=== PATIENT | male | born 1975 | race Hispanic/Latino ===

== ENCOUNTER 2016-12-27 10:12 | Observation (INO) | payer SELFPAY ==
[2016-12-27 10:22] VITALS: BMI 29.0
[2016-12-27] MEDS ORDERED: Iohexol 300 100 ML IJ ONE (10:52)
[2016-12-27] MEDS ORDERED: Sodium Chloride 0.9% 100 ML ONE (10:52)
[2016-12-27 11:13] LABS: BASO % 1.1 % (0.0-2.0); EOS # 0.2 K/uL (0.0-0.7); EOS % 3.7 % (0.0-4.0); HEMATOCRIT 34.1 % (35.0-51.0); LYMPH # 1.2 K/uL (1.0-4.3); LYMPH % 25.7 % (20.0-40.0); MEAN CELL VOLUME 89.5 fl (80.0-94.0); MEAN CORPUSCULAR HEMOGLOBIN 30.4 pg (27.0-31.0); MEAN PLATELET VOLUME 7.3 fl (7.2-11.7); MONO # 0.6 K/uL (0.0-0.8); MONO % 12.2 % (0.0-10.0); NEUT # 2.6 K/uL (1.8-7.0); NEUT % 57.3 % (50.0-75.0); RED CELL DISTRIBUTION WIDTH 14.1 % (11.5-14.5); WHITE BLOOD COUNT 4.5 K/uL (4.8-10.8)
[2016-12-27 11:25] LABS: ALCOHOL SERUM < 10 mg/dl (0-10); BLOOD UREA NITROGEN 22 mg/dl (9-20); CARBON DIOXIDE 25 mmol/L (22-30); CHLORIDE 106 mmol/L (98-107); GFR AFRICAN-AMERICAN > 60; GLUCOSE,RANDOM 104 mg/dL (75-110); POTASSIUM 3.7 MMOL/L (3.6-5.0); SODIUM 138 mmol/l (132-148)
[2016-12-27] MEDS ORDERED: Sodium Chloride 0.9% 1,000 ML IV STA (11:35)
[2016-12-27 11:36] LABS: PARTIAL THROMBOPLASTIN TIME 27.7 Seconds (25.6-37.1)
--- NOTE | 2016-12-27 12:22 | RAD ---
PROCEDURE: Right Knee Radiographs. HISTORY: knee pain injury COMPARISON: None. FINDINGS: BONES: Normal. No fracture. JOINTS: Joint space is relatively preserved. No significant osteoarthritis. 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 JOINT EFFUSION: Tiny suprapatellar joint effusion felt to be present. OTHER FINDINGS: None. IMPRESSION: No evidence of acute displaced fracture nor dislocation. Tiny suprapatellar joint effusion.
--- NOTE | 2016-12-27 12:27 | CT ---
PROCEDURE: CT HEAD WITHOUT CONTRAST. HISTORY: head injury syncope COMPARISON: None available. TECHNIQUE: Axial computed tomography images were obtained through the head/brain without intravenous contrast. Radiation dose: Total exam DLP = 1030.37 mGy-cm. This CT exam was performed using one or more of the following dose reduction techniques: Automated exposure control, adjustment of the mA and/or kV according to patient size, and/or use of iterative reconstruction technique. FINDINGS: HEMORRHAGE: No acute parenchymal, subarachnoid or extra-axial hemorrhage. BRAIN: No evidence of large acute infarct. No obvious parenchymal nor extra-axial masses or collections. Questionable minimal chronic periventricular white matter ischemic changes. Mild generalized volume loss. VENTRICLES: No obstructive hydrocephalus CALVARIUM: No acute calvarial fracture seen. There appears to be some mild left frontotemporal and parietal scalp swelling. PARANASAL SINUSES: Unremarkable as visualized. No significant inflammatory changes. MASTOID AIR CELLS: Unremarkable as visualized. No inflammatory changes. OTHER FINDINGS: None. IMPRESSION: No acute intracranial hemorrhage. On mild left frontotemporal and parietal scalp swelling. Questionable minimal chronic periventricular white matter ischemic changes. Mild generalized volume loss.
--- NOTE | 2016-12-27 12:34 | CT ---
PROCEDURE: CT scan lumbar spine 12/27/2016 HISTORY: Status post fall fall with back pain COMPARISON: No prior TECHNIQUE: Contiguous helical/ transaxial computed tomography images were obtained of the lumbar spine without the use of intravenous contrast. Coronal and sagittal reformatted images were created and reviewed. Radiation dose: Total exam DLP = 1569.66 mGy-cm. This CT exam was performed using one or more of the following dose reduction techniques: Automated exposure control, adjustment of the mA and/or kV according to patient size, and/or use of iterative reconstruction technique. . FINDINGS: VERTEBRAE: The current study reveals no evidence of acute compression fractures no retropulsed fragments. Vertebral bodies exhibit normal stature. Vertebral bodies and facets normally aligned. DISCS/SPINAL CANAL/NEURAL FORAMINA: L1 at the L5-S1 level, there is mild posterior disc space narrowing. . Small central and bilateral (right slightly large than left) reaches and minimally posteriorly displaces the ventral surfaces of the descending S1 nerve roots. No evidence of significant canal stenosis. Facets are slightly overgrown. The exit foramina are narrowed bilaterally. At the L4-L5 level, there is also mild posterior disc space narrowing. Central and bilateral (left larger than right) disc herniation results in bilateral lateral recess stenosis left greater than right and compression of the ventral surfaces of thecal sac more so on the left than right. Central canal measured at midline does appear adequate. Facets are mildly hypertrophic of. Exit foramina appear adequate. At the L3-L4 level, there is minimal posterior disc space narrowing. Small broad-based bulge of the posterior annulus asymmetrically larger on the left than right with some extension into the proximal margin of the left exit foramen more so than right. There is some flattening of the ventral surface of the thecal sac centrally and to the left however the overall central canal is adequate. Facets are slightly overgrown. Exit foramina are adequate. Remaining levels exhibit relatively adequate disc height and. No disc herniation or significant disc bulges seen at the remaining levels. PARASPINAL SOFT TISSUES: Unremarkable. OTHER FINDINGS: Small approximately 3 mm rounded nonobstructing calculus seen in the upper pole left kidney IMPRESSION: No acute fractures. Mild degenerative spondylosis most notably affecting L5-S1 and L4-L5 levels where small disc bulge and disc herniation changes are seen respectively. See above discussion for additional details and findings. Nonobstructing 3 mm calculus upper pole left kidney.
--- NOTE | 2016-12-27 12:41 | CT ---
PROCEDURE: CT Cervical Spine without contrast HISTORY: <neck pain> COMPARISON: None available. TECHNIQUE: Axial computed tomography images were obtained of the cervical spine without the use of intravenous contrast. Coronal and sagittal reformatted images were created and reviewed. Radiation dose: Total exam DLP = 680.35 mGy-cm. This CT exam was performed using one or more of the following dose reduction techniques: Automated exposure control, adjustment of the mA and/or kV according to patient size, and/or use of iterative reconstruction technique. FINDINGS: VERTEBRAE: Current study reveals no acute compression fractures no retropulsed fragments. Vertebral bodies exhibit normal stature. There is straightening of the normal cervical lordosis which could be due to patient positioning gantry however underlying element of mild muscle spasm may contribute. DISCS/SPINAL CANAL/NEURAL FORAMINA: At the C2-C3 level, there is adequate disc height. Small central and bilateral disc bulge minimally indents the ventral surface of thecal sac reaching but not significantly compressing the ventral surface of the cord. The overall central canal is adequate exit foramina appear adequate. At the C3-C4 level, there is disc space narrowing with cortical endplate irregularity and small osteophytic ridge disc complex contiguous with hypertrophic uncovertebral joints. Facets also slightly overgrown. Changes result in mild central canal narrowing and flattening the ventral surface of the cord. Left exit foramen is stenotic. Right exit foramen is mildly narrowed. At the C 4 C5 level, there is adequate disc height. No disc herniation however some minimal broad-based disc bulge ridge complex noted. The uncovertebral joints exhibit minimal degenerative squaring on the left side. Facets a prominent. The central canal appears adequate. Exit foramina are marginal to adequate. At the C5-C6 level, there is mild disc space narrowing with cortical endplate irregularity along the posterior endplates with small osteophytic ridge disc herniation complex (larger on the left than right) and contiguous with hypertrophic uncovertebral joints left more prominent than the right. Changes result in mild canal narrowing and cord compression more so on the left. Facets also mildly hypertrophic. Changes result in mild central canal narrowing more so on the left larger on the left and right PARASPINAL SOFT TISSUES: Unremarkable. OTHER FINDINGS: Lung apices are clear. IMPRESSION: No acute fractures. Mild multilevel degenerative spondylosis most notably affecting the C3-C4 and C5-C6 levels as detailed above. Unremarkable CT of the cervical spine.
--- NOTE | 2016-12-27 12:56 | ED PDOC ---
HPI: General Adult Time Seen by Provider: 12/27/16 10:41 Chief Complaint (Nursing): Chest Pain Chief Complaint (Provider): Chest Pain History Per: Patient History/Exam Limitations: no limitations Onset/Duration Of Symptoms: Hrs Current Symptoms Are (Timing): Still Present Additional Complaint(s): 41 y/o male presents to the emergency department with a complaint of syncopal episode and fall after working on his brothers house on an 18 feet high ladder prior to arrival. Reports he felt a chest pain that radiated to the left arm and shoulder with numbness to the arm before syncope. States he then woke up on the ground with a lower back pain that radiates to the right knee. Patient says he experienced chest pain yesterday and today before fall but had resolved since. Denies taking medications for the relief of pain, headache or chest pain. Past Medical History Reviewed: Historical Data, Nursing Documentation, Vital Signs Vital Signs: Last Vital Signs Temp 97.6 F 12/28/16 09:00 Pulse 62 12/28/16 09:00 Resp 18 12/28/16 09:00 BP 100/62 12/28/16 09:00 Pulse Ox 98 12/28/16 09:00 - Medical History PMH: No Chronic Diseases - Surgical History Surgical History: No Surg Hx - Family History Family History: States: No Known Family Hx - Social History Current smoker - smoking cessation education provided: Yes (Light Smoker < 10 Cigarettes Daily) Alcohol: None Drugs: Denies - Home Medications Home Medications: Ambulatory Orders Medication Instructions Recorded No Known Home Med 12/27/16 - Allergies Allergies/Adverse Reactions: Allergies Allergy/AdvReac Type Severity Reaction Status Date / Time No Known Allergies Allergy Verified 12/27/16 10:33 Review of Systems ROS Statement: Except As Marked, All Systems Reviewed And Found Negative Cardiovascular: Negative for: Chest Pain (Had CP yesterday and today before syncope but had resolved since) Musculoskeletal: Positive for: Back Pain (Lower back), Other (Right knee) Neurological: Positive for: Other (Syncope and fall). Negative for: Headache Physical Exam - Reviewed Nursing Documentation Reviewed: Yes Vital Signs Reviewed: Yes - Physical Exam Appears: Positive for: Well (Uncomfortable), Non-toxic, No Acute Distress Head Exam: Positive for: ATRAUMATIC, NORMAL INSPECTION, NORMOCEPHALIC Skin: Positive for: Normal Color, Warm, Dry Eye Exam: Positive for: Normal appearance, EOMI, PERRL Neck: Positive for: Normal, Supple Cardiovascular/Chest: Positive for: Regular Rate, Rhythm. Negative for: Chest Non Tender, Murmur Respiratory: Positive for: Normal Breath Sounds (Clear b/l). Negative for: Accessory Muscle Use, Wheezing, Respiratory Distress Gastrointestinal/Abdominal: Positive for: Normal Exam, Soft. Negative for: Tenderness, Distended Back: Positive for: Normal Inspection (Normal midline spine region), Other ( Tenderness to the right lower back and right flank region). Negative for: L CVA Tenderness, R CVA Tenderness (No ecchymosis or deformity noted to the back) Extremity: Positive for: Normal ROM (FULL). Negative for: Tenderness, Swelling Neurologic/Psych: Positive for: Alert, Oriented (x3) - Laboratory Results Result Diagrams: 12/28/16 06:00 12/28/16 06:00 - ECG ECG: Positive for: Interpreted By Me, Viewed By Me ECG Rhythm: Positive for: Normal QRS, Normal ST Segment, Sinus Rhythm. Negative for: ST/T Changes Rate: 79 O2 Sat by Pulse Oximetry: 98 (RA) Pulse Ox Interpretation: Normal - Radiology X-Ray: Interpreted by Me, Viewed By Ar X-Ray Interpretation: No Acute Disease Medical Decision Making Medical Decision Making: Time: 10:42 Initial impression: Syncope r/o cardiac conditions such as ACS and cardiac arrhythmia. Multiple blunt injuries r/o intracranial bleed, intraabdominal bleed , spine fracture, pelvic fracture, and knee fracture. Initial plan: --Type and Screen --Alcohol Serum --BMP --Drug Screen, Urine --Troponin I --EKG --CBC w/ diff --Cervical Spine CT --Chest, Abd, Pel w/ IV Contrast CT --Head CT --Lumbar Spine w/o contrast CT --Reevaluation Time: 12:20 --Knee x-ray FINDINGS: BONES: Normal. No fracture. JOINTS: Joint space is relatively preserved. No significant osteoarthritis. 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 JOINT EFFUSION: Tiny suprapatellar joint effusion felt to be present. OTHER FINDINGS: None. IMPRESSION: No evidence of acute displaced fracture nor dislocation. Tiny suprapatellar joint effusion. Time: 12:25 --Head CT FINDINGS: HEMORRHAGE: No acute parenchymal, subarachnoid or extra-axial hemorrhage. BRAIN: No evidence of large acute infarct. No obvious parenchymal nor extra-axial masses or collections. Questionable minimal chronic periventricular white matter ischemic changes. Mild generalized volume loss. VENTRICLES: No obstructive hydrocephalus CALVARIUM: No acute calvarial fracture seen. There appears to be some mild left frontotemporal and parietal scalp swelling. PARANASAL SINUSES: Unremarkable as visualized. No significant inflammatory changes. MASTOID AIR CELLS: Unremarkable as visualized. No inflammatory changes. OTHER FINDINGS: None. IMPRESSION: No acute intracranial hemorrhage. On mild left frontotemporal and parietal scalp swelling. Questionable minimal chronic periventricular white matter ischemic changes. Mild generalized volume loss. Time: 12:31 --Lumbar Spine CT FINDINGS: VERTEBRAE: The current study reveals no evidence of acute compression fractures no retropulsed fragments. Vertebral bodies exhibit normal stature. Vertebral bodies and facets normally aligned. DISCS/SPINAL CANAL/NEURAL FORAMINA: L1 at the L5-S1 level, there is mild posterior disc space narrowing. . Small central and bilateral (right slightly large than left) reaches and minimally posteriorly displaces the ventral surfaces of the descending S1 nerve roots. No evidence of significant canal stenosis. Facets are slightly overgrown. The exit foramina are narrowed bilaterally. At the L4-L5 level, there is also mild posterior disc space narrowing. Central and bilateral (left larger than right) disc herniation results in bilateral lateral recess stenosis left greater than right and compression of the ventral surfaces of thecal sac more so on the left than right. Central canal measured at midline does appear adequate. Facets are mildly hypertrophic of. Exit foramina appear adequate. At the L3-L4 level, there is minimal posterior disc space narrowing. Small broad-based bulge of the posterior annulus asymmetrically larger on the left than right with some extension into the proximal margin of the left exit foramen more so than right. There is some flattening of the ventral surface of the thecal sac centrally and to the left however the overall central canal is adequate. Facets are slightly overgrown. Exit foramina are adequate. Remaining levels exhibit relatively adequate disc height and. No disc herniation or significant disc bulges seen at the remaining levels. PARASPINAL SOFT TISSUES: Unremarkable. OTHER FINDINGS: Small approximately 3 mm rounded nonobstructing calculus seen in the upper pole left kidney IMPRESSION: No acute fractures. Mild degenerative spondylosis most notably affecting L5-S1 and L4-L5 levels where small disc bulge and disc herniation changes are seen respectively. See above discussion for additional details and findings. Nonobstructing 3 mm calculus upper pole left kidney. Time: 12:39 --Cervical Spine CT FINDINGS: VERTEBRAE: Current study reveals no acute compression fractures no retropulsed fragments. Vertebral bodies exhibit normal stature. There is straightening of the normal cervical lordosis which could be due to patient positioning gantry however underlying element of mild muscle spasm may contribute. DISCS/SPINAL CANAL/NEURAL FORAMINA: At the C2-C3 level, there is adequate disc height. Small central and bilateral disc bulge minimally indents the ventral surface of thecal sac reaching but not significantly compressing the ventral surface of the cord. The overall central canal is adequate exit foramina appear adequate. At the C3-C4 level, there is disc space narrowing with cortical endplate irregularity and small osteophytic ridge disc complex contiguous with hypertrophic uncovertebral joints. Facets also slightly overgrown. Changes result in mild central canal narrowing and flattening the ventral surface of the cord. Left exit foramen is stenotic. Right exit foramen is mildly narrowed. At the C 4 C5 level, there is adequate disc height. No disc herniation however some minimal broad-based disc bulge ridge complex noted. The uncovertebral joints exhibit minimal degenerative squaring on the left side. Facets a prominent. The central canal appears adequate. Exit foramina are marginal to adequate. At the C5-C6 level, there is mild disc space narrowing with cortical endplate irregularity along the posterior endplates with small osteophytic ridge disc herniation complex (larger on the left than right) and contiguous with hypertrophic uncovertebral joints left more prominent than the right. Changes result in mild canal narrowing and cord compression more so on the left. Facets also mildly hypertrophic. Changes result in mild central canal narrowing more so on the left larger on the left and right PARASPINAL SOFT TISSUES: Unremarkable. OTHER FINDINGS: Lung apices are clear. IMPRESSION: No acute fractures. Mild multilevel degenerative spondylosis most notably affecting the C3-C4 and C5-C6 levels as detailed above. Unremarkable CT of the cervical spine. Time: 13:27 --Pelvic X-ray FINDINGS: BONES: Pelvic Bones: Unremarkable. Hips: Grossly unremarkable. JOINTS: Sacroiliac Joints: Unremarkable. Pubic Symphysis: Unremarkable. OTHER FINDINGS: None. IMPRESSION: Unremarkable radiographs of the pelvis. Time: 13:26 --Chest, Abd, Pelvis CT FINDINGS: CT CHEST WITH CONTRAST: LUNGS: Minimal passive atelectasis both posterior lower lung zones. Lung lockwood are otherwise clear without infiltrate of nodule or mass. MEDIASTINUM: Heart size is borderline/mildly enlarged. No significant pericardial effusion. Ascending thoracic aorta measures approximately 3.3 cm and descending thoracic aorta measures approximately 2.5 cm. No evidence of aortic dissection or aneurysm. Pulmonary trunk measures approximately 2.73 cm. . LYMPH NODES: No significant mediastinal or hilar adenopathy. There is a tiny hiatal hernia. Central airways are midline and patent. No endobronchial lesions are identified. . All 1st PLEURA: No evidence of pneumothorax or pleural sleep effusion. Exit BONES: There are old healed rib fractures involving the left posterior 4, 5, 6, 7th, mic8 and 9th ribs. . Vertebral bodies are intact. OTHER FINDINGS: None CT ABDOMEN AND PELVIS: LIVER: The liver exhibits normal size measuring approximately 17 cm in CC dimension. Mild diffuse fatty hepatic infiltration. No obvious hepatic mass collection or calcification. Portal and splenic veins are patent. No evidence of parenchymal nor subcapsular hemorrhage. . GALLBLADDER AND BILE DUCTS: Gallbladder is incompletely distended which may account for slight thick-walled appearance. There appears to be a tiny calcification within the gallbladder lumen in the region of fundus. No pericholecystic fluid collections. PANCREAS: Unremarkable. No gross lesion or ductal dilatation. SPLEEN: Spleen measures approximately 12.3 cm in AP dimension. Spleen appears intact without evidence of laceration, up parenchymal nor subcapsular hemorrhage. . No evidence of splenic mass collection or calcification. ADRENALS: Unremarkable. No mass. KIDNEYS AND URETERS: Kidneys demonstrate symmetric nephrograms. . 3 mm nonobstructing calculus again seen upper pole left kidney No evidence of hydronephrosis. No evidence of renal infarct, laceration parenchymal nor subcapsular hemorrhage. . VASCULATURE: No evidence of abdominal aortic aneurysm or iliac artery aneurysm. BOWEL: Evaluation of the bowel is somewhat limited due to the lack of oral contrast material. The stomach is incompletely distended which presumably accounts for slight thick-walled appearance. Gastritis not excluded. There are several loops of small bowel left mid upper abdomen that exhibit slight thick-walled appearance nonspecific. No evidence of obstruction. Stool and air seen throughout the colon. APPENDIX: Normal-appearing appendix best seen on coronal image number [id number]. PERITONEUM: Unremarkable. No free fluid. No free air. LYMPH NODES: There are multiple bilateral inguinal lymph nodes present. Few small external iliac chain lymph nodes are also noted. BLADDER: The urinary bladder is incompletely distended which may account for slight thick -walled appearance. Muscular hypertrophy may contribute. REPRODUCTIVE: Unremarkable. BONES: The osseous structures appear grossly intact. Both femoral heads are appropriately located within the respective acetabula. OTHER FINDINGS: None. IMPRESSION: Multiple old healed left posterior rib fractures as above. No evidence of intrathoracic acute posttraumatic sequela. No evidence of intra abdominal acute posttraumatic sequela Note made of minimal wall thickening of several loops of small bowel left upper abdomen nonspecific. The gallbladder is incompletely distended/contracted likely due to nonfasting state. Contraction presumably accounts for slight thick-walled appearance. There is a small intraluminal gallbladder calculus however. Clinical correlation recommended. Followup nonemergent gallbladder ultrasound recommended. See above discussion for additional details and findings. Time: 13:28 --Chest x-ray FINDINGS: LUNGS: Clear. PLEURA: No pneumothorax or pleural fluid seen. CARDIOVASCULAR: Normal. OSSEOUS STRUCTURES: Multiple old healed left-sided rib fractures including 4th, 5th, 6th, 7th 8th and 9th ribs. These fractures are seen to much better advantage on prior CT scan chest abdomen pelvis. VISUALIZED UPPER ABDOMEN: Normal. OTHER FINDINGS: None. IMPRESSION: Multiple old healed left-sided posterior rib fracture deformities. 14:01 --Admit to hospital routine: Observation in Telemetry for syncope, chest pain, and lower back pain under the care of Dr. Segundo Rico MD Scribe Attestation: Documented by Pauline Weathers, acting as a scribe for Taylor Waterman MD. Provider Scribe Attestation: All medical record entries made by the Scribe were at my direction and personally dictated by me. I have reviewed the chart and agree that the record accurately reflects my personal performance of the history, physical exam, medical decision making, and the department course for this patient. I have also personally directed, reviewed, and agree with the discharge instructions and disposition. Disposition - Clinical Impression Clinical Impression: Syncope, Back pain, Chest pain - Patient ED Disposition Is Patient to be Admitted: Yes (On observaiton in Telemetry) Discussed With : Segundo Rico Counseled Patient/Family Regarding: Studies Performed, Diagnosis - Disposition Disposition Time: 14:01 Condition: FAIR - Pt Status Changed To: Hospital Disposition Of: Observation - POA Present On Arrival: Falls Or Trauma
--- NOTE | 2016-12-27 13:28 | CT ---
PROCEDURE: CT chest abdomen pelvis dated 12/27/2016 HISTORY: Status post fall with chest and back pain. COMPARISON: Correlation made with concurrent CT scan of the lumbar spine TECHNIQUE: IV dose administered: 99 cc Omnipaque 300 contrast material. Radiation dose: Total exam DLP = 1263.67 mGy-cm. This CT exam was performed using one or more of the following dose reduction techniques: Automated exposure control, adjustment of the mA and/or kV according to patient size, and/or use of iterative reconstruction technique. FINDINGS: CT CHEST WITH CONTRAST: LUNGS: Minimal passive atelectasis both posterior lower lung zones. Lung [place] are otherwise clear without infiltrate of nodule or mass. MEDIASTINUM: Heart size is borderline/mildly enlarged. No significant pericardial effusion. Ascending thoracic aorta measures approximately 3.3 cm and descending thoracic aorta measures approximately 2.5 cm. No evidence of aortic dissection or aneurysm. Pulmonary trunk measures approximately 2.73 cm. . LYMPH NODES: No significant mediastinal or hilar adenopathy. There is a tiny hiatal hernia. Central airways are midline and patent. No endobronchial lesions are identified. . All 1st PLEURA: No evidence of pneumothorax or pleural sleep effusion. Exit BONES: There are old healed rib fractures involving the left posterior 4, 5, 6, 7th, mic8 and 9th ribs. . Vertebral bodies are intact. OTHER FINDINGS: None CT ABDOMEN AND PELVIS: LIVER: The liver exhibits normal size measuring approximately 17 cm in CC dimension. Mild diffuse fatty hepatic infiltration. No obvious hepatic mass collection or calcification. Portal and splenic veins are patent. No evidence of parenchymal nor subcapsular hemorrhage. . GALLBLADDER AND BILE DUCTS: Gallbladder is incompletely distended which may account for slight thick-walled appearance. There appears to be a tiny calcification within the gallbladder lumen in the region of fundus. No pericholecystic fluid collections. PANCREAS: Unremarkable. No gross lesion or ductal dilatation. SPLEEN: Spleen measures approximately 12.3 cm in AP dimension. Spleen appears intact without evidence of laceration, up parenchymal nor subcapsular hemorrhage. . No evidence of splenic mass collection or calcification. ADRENALS: Unremarkable. No mass. KIDNEYS AND URETERS: Kidneys demonstrate symmetric nephrograms. . 3 mm nonobstructing calculus again seen upper pole left kidney No evidence of hydronephrosis. No evidence of renal infarct, laceration parenchymal nor subcapsular hemorrhage. . VASCULATURE: No evidence of abdominal aortic aneurysm or iliac artery aneurysm. BOWEL: Evaluation of the bowel is somewhat limited due to the lack of oral contrast material. The stomach is incompletely distended which presumably accounts for slight thick-walled appearance. Gastritis not excluded. There are several loops of small bowel left mid upper abdomen that exhibit slight thick-walled appearance nonspecific. No evidence of obstruction. Stool and air seen throughout the colon. APPENDIX: Normal-appearing appendix best seen on coronal image number [id number]. PERITONEUM: Unremarkable. No free fluid. No free air. LYMPH NODES: There are multiple bilateral inguinal lymph nodes present. Few small external iliac chain lymph nodes are also noted. BLADDER: The urinary bladder is incompletely distended which may account for slight thick-walled appearance. Muscular hypertrophy may contribute. REPRODUCTIVE: Unremarkable. BONES: The osseous structures appear grossly intact. Both femoral heads are appropriately located within the respective acetabula. OTHER FINDINGS: None. IMPRESSION: Multiple old healed left posterior rib fractures as above. No evidence of intrathoracic acute posttraumatic sequela. No evidence of intra abdominal acute posttraumatic sequela Note made of minimal wall thickening of several loops of small bowel left upper abdomen nonspecific. The gallbladder is incompletely distended/contracted likely due to nonfasting state. Contraction presumably accounts for slight thick-walled appearance. There is a small intraluminal gallbladder calculus however. Clinical correlation recommended. Followup nonemergent gallbladder ultrasound recommended. See above discussion for additional details and findings.
--- NOTE | 2016-12-27 13:29 | RAD ---
PROCEDURE: Radiographs of the pelvis. HISTORY: pelvic pain COMPARISON: Correlation made with concurrent CT scan chest abdomen pelvis FINDINGS: BONES: Pelvic Bones: Unremarkable. Hips: Grossly unremarkable. JOINTS: Sacroiliac Joints: Unremarkable. Pubic Symphysis: Unremarkable. OTHER FINDINGS: None. IMPRESSION: Unremarkable radiographs of the pelvis.
--- NOTE | 2016-12-27 13:30 | RAD ---
PROCEDURE: CHEST RADIOGRAPH, 1 VIEW HISTORY: chest pain COMPARISON: None available. FINDINGS: LUNGS: Clear. PLEURA: No pneumothorax or pleural fluid seen. CARDIOVASCULAR: Normal. OSSEOUS STRUCTURES: Multiple old healed left-sided rib fractures including 4th, 5th, 6th, 7th 8th and 9th ribs. These fractures are seen to much better advantage on prior CT scan chest abdomen pelvis. VISUALIZED UPPER ABDOMEN: Normal. OTHER FINDINGS: None. IMPRESSION: Multiple old healed left-sided posterior rib fracture deformities.
[2016-12-27] MEDS ORDERED: Enoxaparin 40 mg Syringe SC SCH (15:30)
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
[2016-12-27 16:48] LABS: ABG ALLEN TEST YES; ARTERIAL BLOOD GAS HCO3 26.8 mmol/L (21-28); ARTERIAL BLOOD GAS O2 CAPACITY 15.3 mL/dL (16-24); ARTERIAL BLOOD GAS O2 CONTENT 15.1 ML/dL (15-23); ARTERIAL BLOOD GAS PH 7.46 (7.35-7.45); ARTERIAL BLOOD GAS PO2 98 mm/Hg (80-100); ARTERIAL BLOOD HGB O2 SAT 94.2 % (95.0-98.0); HHB 1.2 % (0.0-5.0); METHEMOGLOBIN 1.6 % (0.0-3.0)
[2016-12-27] MEDS: Pantoprazole 40 mg EC Tab PO SCH (18:04)
[2016-12-27 19:30] VITALS: O2SAT 98
--- NOTE | 2016-12-27 20:44 | CARD ---
APPROVED REPORT EKG Measurement Heart [id number] WI [id number] <Conclusion> Normal sinus rhythm Normal ECG
[2016-12-28 00:16] VITALS: RESP 18
[2016-12-28] MEDS ORDERED: Oxycodone/Acetaminophen 5/325 mg Tab PO PRN (08:10)
[2016-12-28 08:21] LABS: HEMATOCRIT 34.1 % (35.0-51.0); MEAN CELL VOLUME 90.6 fl (80.0-94.0); MEAN CORPUSCULAR HEMOGLOBIN 30.5 pg (27.0-31.0); MEAN CORPUSCULAR HGB CONC 33.6 g/dL (33.0-37.0); RED CELL DISTRIBUTION WIDTH 13.9 % (11.5-14.5); WHITE BLOOD COUNT 3.6 K/uL (4.8-10.8)
[2016-12-28] MEDS: Pantoprazole 40 mg EC Tab PO SCH (08:29)
[2016-12-28 08:41] LABS: BLOOD UREA NITROGEN 14 mg/dl (9-20); CALCIUM 8.6 mg/dL (8.4-10.2); CARBON DIOXIDE 27 mmol/L (22-30); CHLORIDE 109 mmol/L (98-107); CHOLESTEROL 120 mg/dL (0-199); GFR AFRICAN-AMERICAN > 60; GLUCOSE,RANDOM 94 mg/dL (75-110); POTASSIUM 4.2 MMOL/L (3.6-5.0); SODIUM 138 mmol/l (132-148)
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
[2016-12-28 12:13] VITALS: BP 96/62; PULSE 55; TEMP 98.4
--- NOTE | 2016-12-28 13:26 | CP.PCM.DIS ---
Provider - Provider Date of Admission: 12/27/16 14:01 Attending physician: Segundo Rico MD Consults: Dr Steven Time Spent in preparation of Discharge (in minutes): 25 Diagnosis - Discharge Diagnosis (1) Syncope Status: Acute Comment: probably vasovagal (2) Chest pain Status: Resolved Comment: presently pain free. serial Troponins were negative for mycardial ischemia (3) Fall from roof Status: Acute Comment: right lower back pain secondary to trauma. Motrin 400mg PO q 4hrs prn for pain. Percocet 5/325 PO q 6hrs prn for pain not relieved with above Hospital Course - Lab Results Lab Results: Most Recent Lab Values WBC 3.6 K/uL (4.8-10.8) L 12/28/16 06:00 RBC 3.76 Mil/uL (4.40-5.90) L 12/28/16 06:00 Hgb 11.5 g/dL (12.0-18.0) L 12/28/16 06:00 Hct 34.1 % (35.0-51.0) L 12/28/16 06:00 MCV 90.6 fl (80.0-94.0) 12/28/16 06:00 MCH 30.5 pg (27.0-31.0) 12/28/16 06:00 MCHC 33.6 g/dL (33.0-37.0) 12/28/16 06:00 RDW 13.9 % (11.5-14.5) 12/28/16 06:00 Plt Count 252 K/uL (130-400) 12/28/16 06:00 MPV 7.3 fl (7.2-11.7) 12/27/16 10:55 Neut % (Auto) 57.3 % (50.0-75.0) 12/27/16 10:55 Lymph % (Auto) 25.7 % (20.0-40.0) 12/27/16 10:55 [place] % (Auto) 12.2 % (0.0-10.0) H 12/27/16 10:55 Eos % (Auto) 3.7 % (0.0-4.0) 12/27/16 10:55 Baso % (Auto) 1.1 % (0.0-2.0) 12/27/16 10:55 Neut # 2.6 K/uL (1.8-7.0) 12/27/16 10:55 Lymph # 1.2 K/uL (1.0-4.3) 12/27/16 10:55 [place] # 0.6 K/uL (0.0-0.8) 12/27/16 10:55 Eos # 0.2 K/uL (0.0-0.7) 12/27/16 10:55 Baso # 0.0 K/uL (0.0-0.2) 12/27/16 10:55 PT 12.9 Seconds (9.8-13.1) 12/27/16 10:55 INR 1.3 (0.9-1.2) H 12/27/16 10:55 APTT 27.7 Seconds (25.6-37.1) 12/27/16 10:55 D-Dimer, Quantitative 339 ng/mlDDU (0-230) H 12/27/16 16:00 pCO2 37 mm/Hg (35-45) 12/27/16 16:45 pO2 98 mm/Hg (80-100) 12/27/16 16:45 HCO3 26.8 mmol/L (21-28) 12/27/16 16:45 ABG pH 7.46 (7.35-7.45) H 12/27/16 16:45 ABG Total CO2 27.4 mmol/L (22-28) 12/27/16 16:45 ABG O2 Saturation 98.7 % (95-98) H 12/27/16 16:45 ABG O2 Content 15.1 ML/dL (15-23) 12/27/16 16:45 ABG Base Excess 2.5 mmol/L (-2.0-3.0) 12/27/16 16:45 ABG Hemoglobin 11.3 g/dL (11.7-17.4) L 12/27/16 16:45 ABG Carboxyhemoglobin 3.0 % (0.5-1.5) H 12/27/16 16:45 POC ABG HHb (Measured) 1.2 % (0.0-5.0) 12/27/16 16:45 ABG Methemoglobin 1.6 % (0.0-3.0) 12/27/16 16:45 ABG O2 Capacity 15.3 mL/dL (16-24) L 12/27/16 16:45 Maged Test Yes 12/27/16 16:45 A-a O2 Difference 5.0 mm/Hg 12/27/16 16:45 Hgb O2 Saturation 94.2 % (95.0-98.0) L 12/27/16 16:45 FiO2 21.0 % 12/27/16 16:45 Sodium 138 mmol/l (132-148) 12/28/16 06:00 Potassium 4.2 MMOL/L (3.6-5.0) 12/28/16 06:00 Chloride 109 mmol/L (98-107) H 12/28/16 06:00 Carbon Dioxide 27 mmol/L (22-30) 12/28/16 06:00 Anion Gap 6 (10-20) L 12/28/16 06:00 BUN 14 mg/dl (9-20) 12/28/16 06:00 Creatinine 0.7 mg/dL (0.8-1.5) L 12/28/16 06:00 Est GFR ( Amer) > 60 12/28/16 06:00 Est GFR (Non-Af Amer) > 60 12/28/16 06:00 Random Glucose 94 mg/dL (75-110) 12/28/16 06:00 Calcium 8.6 mg/dL (8.4-10.2) 12/28/16 06:00 Troponin I < 0.0120 ng/mL (0.00-0.120) 12/28/16 06:00 Triglycerides 51 mg/DL (0-149) 12/28/16 06:00 Cholesterol 120 mg/dL (0-199) 12/28/16 06:00 LDL Cholesterol Direct 67 mg/dL (0-129) 12/28/16 06:00 HDL Cholesterol 34 MG/DL (30-70) 12/28/16 06:00 Urine Opiates Screen Positive (NEGATIVE) H 12/27/16 15:48 Urine Methadone Screen Negative (NEGATIVE) 12/27/16 15:48 Ur Barbiturates Screen Negative (NEGATIVE) 12/27/16 15:48 Ur Phencyclidine Scrn Negative (NEGATIVE) 12/27/16 15:48 Ur Amphetamines Screen Positive (NEGATIVE) H 12/27/16 15:48 U Benzodiazepines Scrn Negative (NEGATIVE) 12/27/16 15:48 U Oth Cocaine Metabols Negative (NEGATIVE) 12/27/16 15:48 U Cannabinoids Screen Negative (NEGATIVE) 12/27/16 15:48 Alcohol, Quantitative < 10 mg/dl (0-10) 12/27/16 10:55 Blood Type A POSITIVE 12/27/16 10:55 Antibody Screen Negative 12/27/16 10:55 BBK History Checked No verified bt 12/27/16 10:55 - Hospital Course Hospital Course: 41 yo male with no significant PMH while cleaning the gutter on his brother's house suddenly had another midsternal chest pain radiating to the left side of the neck and left shoulder accompanied with palpitation, dizzinesss and cold sweat. Next thing he knew, he woke up lying on the grass with pain on right lower back. He claimed he has been having this chest pain on and off since yesterday. He described it as sharp and felt like pulsating. He walked inside the house and told his brother who immediately brought him in the ER. He denied SOB, fever or chills. The roof of the house was about 18 feet high. Multiple imagings which included Xray and CT scan did not show any injury from the fall. Serial Troponins were also negative for myocardial ischemia. Pt is discharged in stable condition. Discharge Exam - Head Exam Head Exam: ATRAUMATIC, NORMAL INSPECTION, NORMOCEPHALIC - Eye Exam Eye Exam: absent: Scleral icterus - ENT Exam ENT Exam: Mucous Membranes Moist - Respiratory Exam Respiratory Exam: absent: Wheezes, Respiratory Distress - Cardiovascular Exam Cardiovascular Exam: REGULAR RHYTHM, +S1, +S2 - GI/Abdominal Exam GI & Abdominal Exam: Soft. absent: Tenderness - Rectal Exam Rectal Exam: Deferred - Extremities Exam Extremities exam: pedal pulses present - Neurological Exam Neurological exam: Alert, Oriented x3 - Psychiatric Exam Psychiatric exam: Normal Affect - Skin Skin Exam: Dry, Intact Discharge Plan - Discharge Medications Prescriptions: oxyCODONE/Acetaminophen [Percocet 5/325 mg Tab] 1 ea PO Q6 PRN #20 tab PRN Reason: Pain, Moderate (4-7) - Follow Up Plan Condition: FAIR Disposition: HOME/ ROUTINE Instructions: Syncope (DC), Syncope (GEN), Back Pain (GEN)
== END 2016-12-28 13:30 | disposition home or self-care (01) ==
LOC: H.ER 10:12 → H.ERHOLD 14:01 → H.TEL 16:14
DX: R55 Syncope and collapse (principal); R07.89 Other chest pain; M54.5 Low back pain; F17.210 Nicotine dependence, cigarettes, uncomplicated
CPT/HCPCS: 36415; 70450; 71010; 71260; 72125; 72131; 72170; 73562; 74177; 80048; 80061; 82803; 84484; 85025; 85027; 85378; 85610; 85730; 86850; 86900; 93005; 96374; 96375; 99285; G0378; G0480; J1885; J2270; J2405; J7040; Q9967